=== PATIENT | female | born 1950 | race Caucasian/White ===

== ENCOUNTER → 2019-05-17 11:18 | Outpatient (CLI) | payer BC, SELFPAY ==
--- NOTE | 2019-05-17 11:24 | CT_ITS ---
STUDY: CT ABDOMEN AND PELVIS WITHOUT CONTRAST REASON FOR EXAM: Female, 68 years old. Hydronephrosis RADIATION DOSAGE (If Supplied By Facility): DLP = ( 292.84 ) mGycm TECHNIQUE: Transaxial images were obtained from the dome of the diaphragm to the symphysis pubis without oral contrast, and without intravenous contrast. Sagittal and coronal images were reconstructed. Individualized dose optimization techniques were used for this CT. COMPARISON: None. FINDINGS: Evaluation of the abdominal viscera is limited in the absence of intravenous contrast. The visualized lung bases are clear. The visualized portions of the heart and pericardium are within normal limits. There are no calcified gallstones present. The liver demonstrates an unremarkable unenhanced appearance. The spleen is normal in size. The pancreas demonstrates an unremarkable unenhanced appearance. The adrenal glands are within normal limits. There are no obstructing renal stones. There is no hydronephrosis. Normal visualized stomach. There is no bowel obstruction or inflammation. The aorta is normal in caliber. There is no abdominal or pelvic free air, free fluid, fluid collection or lymphadenopathy. There are no destructive osseous lesions. CT/Abdomen/Pelvis without Cont IMPRESSION: No acute abdominal or pelvic pathology demonstrated on this noncontrast CT. Electronically Signed: Graham De Luna, at 18:14 EST Tel , Service support ,
== END ==
PROVIDERS: Family Provider Family Medicine; PCP Family Medicine; Visit Provider Nurse Practitioner Adult Health
DX: N13.39 Other hydronephrosis (principal)
CPT/HCPCS: 74176

== ENCOUNTER → 2020-02-01 10:54 | Outpatient (CLI) | payer BC, SELFPAY ==
--- NOTE | 2020-02-01 | FLU_PTH ---
PATIENT: NEENA MORALES LOC: [facility] U#:[id number] AGE/SX: 74/F ROOM: RE02/01/[address]: Dr. Ollie Johnson MD : 1950 BED: DIS: SPEC #: [id number] RECD: 02/01/20 10:57 STATUS: DOE VERONICA #: [id number] GERARDO: 02/01/20 00:[address]: Ollie Johnson DEPT: CYTOLOGY RECD BY: Edi Wheat ENTERED: 02/01/20 12:17 SP TYPE: Fluid OTHR DR: Andreas Thompson, BEHAVIORAL HEALTH AIDE-C Tissues: Urine Procedures: Special Stain Group II Cytospin Fluid HEADER OPERATION: Not noted PRE-OP DIAGNOSIS: Hematuria TISSUE SUBMITTED: Urine for cytology DIAGNOSIS CYTOLOGY Urine for cytology (cytospin): Atypical urothelial cells with squamoid features present. See comment. AM:romulo 02/04/20 COMMENT Clinical correlation is necessary. CYTOLOGY STUDY Slides are reviewed. CYTOLOGY GROSS Received is 60 ml of yellow hazy fluid labeled with the patient's name and and designated per the requisition as urine. Submitted for cytology preparation. / romulo 02/01/20 TC:? CPT: 10986
[2020-02-01 10:58] LABS: Cytology, Body Fluid / CSF SEE PATHOLOGY REPORT
== END ==
PROVIDERS: PCP Nurse Practitioner Family; Referring Provider Urology; Visit Provider Urology
DX: R31.9 Hematuria, unspecified (principal)
CPT/HCPCS: 88108; 88313

== ENCOUNTER 2021-06-19 14:03 | Outpatient (CLI) | payer BC, SELFPAY ==
[2021-07-02 03:07] LABS: Alternaria tenuis <0.10 kU/L (Class 0); Cat Hair / Dander,Stand <0.10 kU/L (Class 0); Cladosporium herbarum <0.10 kU/L (Class 0); Cockroach, American <0.10 kU/L (Class 0); D farinae Mite <0.10 kU/L (Class 0); D pteronyssinus <0.10 kU/L (Class 0); Dog Epithelia <0.10 kU/L (Class 0); Mouse Urine <0.10 kU/L (Class 0)
== END 2021-06-19 23:59 | disposition home or self-care (01) ==
LOC: LAB 14:09
PROVIDERS: PCP Nurse Practitioner Family; Referring Provider Internal Medicine Pulmonary Disease; Visit Provider Internal Medicine Pulmonary Disease
DX: J30.89 Other allergic rhinitis (principal); R05.9 Cough, unspecified
CPT/HCPCS: 36415; 82785; 86003

== ENCOUNTER 2021-07-16 12:59 | Outpatient (CLI) | payer BC, SELFPAY ==
--- NOTE | 2021-07-16 13:06 | CT_ITS ---
EXAM: CT Maxillofacial Sinuses Without Intravenous Contrast CLINICAL INDICATION: 70 years old, Female; ALLERGIC RHINITS TECHNIQUE: Helically acquired images were obtained of the maxillofacial sinuses without intravenous contrast. This CT exam was performed using one or more of the following dose reduction techniques: automated exposure control, adjustment of the mA and/or kV according to patient size, and/or use of iterative reconstruction technique. This report was created using [employer] report Image Socket technology. COMPARISON: None. FINDINGS: Maxillary sinuses: Clear. Ostiomeatal complexes are normally formed. Sphenoid sinuses: Clear. Frontal sinuses: Clear. Ethmoid air cells: Clear. Nasal cavity/septum: Nasal septum is midline. Nasal turbinates are unremarkable. Bones/joints: Anterior cranial fossa is unremarkable. Orbits: Unremarkable. Dental: Unremarkable as visualized. No periodontal osseous erosion. CT/Sinus/Facial Bone IMPRESSION: Negative CT of the sinuses. Electronically Signed: Taj Grant MD at 4:55 EST ,
== END 2021-07-16 23:59 | disposition home or self-care (01) ==
LOC: CT 13:00
PROVIDERS: PCP Nurse Practitioner Family; Referring Provider Internal Medicine Pulmonary Disease; Visit Provider Internal Medicine Pulmonary Disease
DX: J30.9 Allergic rhinitis, unspecified (principal)
CPT/HCPCS: 70486

== ENCOUNTER → 2021-10-14 | Outpatient (CLI) | payer BC, SELFPAY ==
[2021-10-14] MEDS: Methacholine Chloride 18 ml neb kit INHALATION (07:09)
--- NOTE | 2021-10-14 14:41 | BRONCHALL ---
Bronchoprovocation Challenge Bronchoprovocation Challenge Bronchoprovocation Challenge: BRONCHOPROVOCATION STUDY INTERPRETATION Brief HPI: Patient is a 71 year old female who presents to [facility] for a bronchoprovocation study secondary to diagnosis of cough. Respiratory therapist reports good effort and reproducible results. Interpretation: Initial spirometry showed no large airways obstructive ventilatory defect. The patient was then given increasingly concentrated doses of methacholine in a stepwise/standardized fashion, using a modified ATS protocol. The patient?s maximum reduction in FEV1 was 18 percent predicted. Impression: Negative Bronchoprovocation study. This is NOT consistent with the diagnosis of asthma.
== END | disposition home or self-care (01) ==
PROVIDERS: PCP Nurse Practitioner Family; Referring Provider Internal Medicine Pulmonary Disease; Visit Provider Internal Medicine Pulmonary Disease
DX: J45.909 Unspecified asthma, uncomplicated (principal); R05.9 Cough, unspecified
CPT/HCPCS: 94070; 95070

== ENCOUNTER → 2022-05-28 | Outpatient (CLI) | payer BC, SELFPAY ==
[2022-05-28 15:46] LABS: Erythrocyte Sedimentation Rate 3 mm/hr (0-30)
[2022-05-28 16:18] LABS: CRP < 2.90 mg/L (0.0-3.0); Rheumatoid Factor < 10.0 IU/mL (<15)
[2022-05-31 18:40] LABS: ANTINUCLEAR ANTIBODIES DIRECT Negative (Negative); Anti-dsDNA Ab <1 IU/mL (0-9); CCP IgG Antibodies 7 units (0-19)
== END | disposition home or self-care (01) ==
LOC: MTLAB 11:50
PROVIDERS: PCP Nurse Practitioner Family; Referring Provider Internal Medicine Pulmonary Disease; Visit Provider Internal Medicine Pulmonary Disease
DX: R05.9 Cough, unspecified (principal)
CPT/HCPCS: 36415; 85652; 86038; 86140; 86200; 86225; 86431